=== PATIENT | female | born 2000 | race Caucasian/White ===

== ENCOUNTER 2022-07-13 12:55 | Emergency (ER) | payer MEDICAID ==
[~2022-07-13] VITALS: Ht 160 cm; Wt 75.0 kg
[2022-07-13 13:12] VITALS: BP 144/81
[2022-07-13] MEDS ORDERED: ONDANSETRON 4MG ODT PO ONE (14:30)
== END 2022-07-13 17:50 | disposition home or self-care (01) ==
LOC: ER 13:17
DX: R51.9 Headache, unspecified (principal)
CPT/HCPCS: 81025; 99283; Q0162

== ENCOUNTER 2022-11-30 02:40 | Emergency (ER) | payer MEDICAID ==
[~2022-11-30] VITALS: Ht 149.9 cm; Wt 55.8 kg
[2022-11-30 02:45] VITALS: PULSE 72
[2022-11-30 03:04] VITALS: BP 133/88; RESP 15; TEMP 98.6; O2SAT 99
[2022-11-30 03:51] LABS: CLARITY URINE CLEAR (CLEAR); COLOR URINE YELLOW (YELLOW); GLUCOSE URINE NEGATIVE (NEGATIVE); KETONES URINE NEGATIVE (NEGATIVE); LEUKOCYTE ESTERASE URINE NEGATIVE (NEGATIVE); NITRITE URINE NEGATIVE (NEGATIVE); OCCULT BLOOD URINE 2+ (NEGATIVE); PROTEIN URINE NEGATIVE (NEGATIVE); SPECIFIC GRAVITY URINE 1.006 (1.005-1.030); UROBILINOGEN URINE 0.2 E.U./dL (0.2-1.0)
[2022-11-30 03:54] LABS: BACTERIA URINE NONE SEEN; RBC URINE 15-25 /hpf (0-2); SQUAMOUS EPITHELIAL CELL URINE NONE SEEN /lpf (RARE/1+); WBC URINE 0-2 /hpf (0-2); YEAST URINE NONE SEEN
[2022-11-30] MEDS ORDERED: BO1 TP (05:39)
[2022-11-30] MEDS ORDERED: TOPUD PO (05:39)
== END 2022-11-30 05:50 | disposition home or self-care (01) ==
LOC: ER 02:40
DX: R10.2 Pelvic and perineal pain (principal)
CPT/HCPCS: 81003; 81025; 99284; Z7610 ×2